=== PATIENT | male | born 1975 | race Caucasian/White ===

== ENCOUNTER 2017-08-16 13:30 | Emergency (ER) | payer OTHER ==
[~2017-08-16] VITALS: Ht 188 cm; Wt 93.4 kg
[~2017-08-16 13:30] MED LIST: HYDR-4309 PO; KET10 PO; ONDA4TAB PO; PROC10TA4 PO
--- NOTE | 2017-08-16 13:37 | ER Report ---
History and Physical Time Seen By MD: 13:36 HPI/ROS CC: Abdominal pain HPI: 41-year-old male with past medical history of hernia with mesh repair. Patient had surgery July 2017 with placement of mesh. Patient states that he has epigastric and supraumbilical abdominal pain stabbing aching and throbbing in nature and nonradiating that is rating as an 8 out of 10. He is nauseated with emesis. Last bowel movement was yesterday. He's denies any flatus today. He usually has a bowel movement every day. He also states that he has a lot of erructation. Patient is concerned about possible bowel obstruction. CT of the abdomen on revealed: IMPRESSION: 1. No acute abnormality in the abdomen or pelvis. 2. Small fat-containing umbilical hernia with a 1.5 cm neck. ROS: 12 point review of systems essentially negative other than what's mentioned in history of present illness. NURSES AND OLD MEDICAL RECORDS: Reviewed PMH: Reviewed SURGICAL HX: Reviewed FAMILY HX: Noncontributory SOCIAL HX: Patient denies smoking alcohol or illicit drugs. He is and is on home. VITAL SIGNS: Reviewed CONSTITUTIONAL: 41-year-old male in minimal to moderate distress PHYSICAL EXAM: HEENT: Pupils equal round reactive to light and accommodate, EOMI, tympanic membranes pearly white umbo present with good light reflex. Lips dry mucous membranes moist gums nonbleeding uvula midline and rises equally with phonation, oropharynx noninjected, teeth intact. NECK: Neck supple, thyroid not appreciated, anterior and posterior cervical lymphadenopathy not appreciated. Trachea midline and rises equally with phonation. CARDIAC: S1-S2 regular rate rhythm no murmurs rubs or gallops. LUNGS: Lungs clear bilaterally posteriorly in all ren. Good air movement. ABDOMEN: Abdomen soft, nondistended, mild epigastric pain no rebound tenderness, bowel sounds active in all 4 quadrants with normal pitch, no bruits noted, no CVA tenderness. MUSCULOSKELETAL: Strength 5 out of 5 x 4 extremities, no deformities noted. NEUROLOGIC: Patient alert and oriented by 3 Allergies: Coded Allergies: codeine (Verified Allergy, Unknown, 08/16/17) Home Meds Active Scripts Ketorolac Tromethamine (KETOROLAC TROMETHAMINE) 10 Mg Tab, 10 MG PO Q6H, #16 TAB Prov:EMANUEL ASHLEY MD 07/20/17 Discontinued Scripts Hydrocodone Bit/Acetaminophen (NORCO 5-325 TABLET) 1 Each Tablet, 1-2 EACH PO Q4H Y for PAIN, #30 TAB Prov:EMANUEL ASHLEY MD 07/20/17 Hx Substance Use Disorder: No Hx Alcohol Use: No Constitutional Vital Sign - Last 24 Hours 08/16/17 08/16/17 08/16/17 08/16/17 13:36 13:38 13:40 13:45 Temp 97.8 Pulse 80 74 79 Resp 16 B/P (MAP) 122/89 (100) 122/89 Pulse Ox 96 94 93 O2 Delivery Room Air 08/16/17 08/16/17 08/16/17 08/16/17 13:50 13:55 14:00 14:05 Pulse 74 79 77 77 B/P (MAP) 114/85 (95) Pulse Ox 94 93 94 91 08/16/17 14:10 Pulse 72 Pulse Ox 92 Medical Decision Making Data Points Result Diagram: 08/16/17 1400 08/16/17 1400 Laboratory Hematology Test 08/16/17 13:40 08/16/17 14:00 Urine Color Yellow Urine Clarity Clear Urine pH 7.0 pH (4.8-9.5) Urine Specific [place] 1.025 Urine Protein Negative mg/dL (NEGATIVE) Urine Glucose (UA) Negative mg/dL (NEGATIVE) Urine Ketones Negative mg/dL (NEGATIVE) Urine Blood Negative (NEGATIVE) Urine Nitrite Negative (NEGATIVE) Urine Bilirubin Negative (NEGATIVE) Urine Urobilinogen Negative mg/dL (0.2-1.9) Urine Leukocyte Esterase Negative (NEGATIVE) Urine RBC None /HPF (0-2/HPF) Urine WBC 1 /HPF (0-5/HPF) Urine Squamous Epithelial Cells None /LPF (</=FEW) Urine Bacteria Negative /HPF (NONE-FEW) Urine Mucus Few /HPF (NONE-FEW) Red Blood Count 5.72 M/uL (4.00-5.60) Mean Corpuscular Volume 84.5 fL (80.0-96.0) Mean Corpuscular Hemoglobin 29.5 pg (26.0-33.0) Mean Corpuscular Hemoglobin Concent 34.9 g/dL (32.0-36.0) Red Cell Distribution Width 13.4 % (11.5-14.5) Mean Platelet Volume 7.4 fL (7.2-11.1) Neutrophils (%) (Auto) 39.7 % (39.4-72.5) Lymphocytes (%) (Auto) 49.2 % (17.6-49.6) Monocytes (%) (Auto) 7.7 % (4.1-12.4) Eosinophils (%) (Auto) 2.8 % (0.4-6.7) Basophils (%) (Auto) 0.6 % (0.3-1.4) Nucleated RBC Relative Count (auto) 0.0 /100WBC Neutrophils # (Auto) 2.4 K/uL (2.0-7.4) Lymphocytes # (Auto) 2.9 K/uL (1.3-3.6) Monocytes # (Auto) 0.5 K/uL (0.3-1.0) Eosinophils # (Auto) 0.2 K/uL (0.0-0.5) Basophils # (Auto) 0.0 K/uL (0.0-0.1) Nucleated RBC Absolute Count (auto) 0.00 K/uL Sodium Level 139 mmol/L (137-145) Potassium Level 4.2 mmol/L (3.5-5.0) Chloride Level 104 mmol/L (98-107) Carbon Dioxide Level 25 mmol/L (22-30) Blood Urea Nitrogen 16 mg/dl (9-21) Creatinine 1.00 mg/dl (0.66-1.25) Glomerular Filtration Rate Calc > 60.0 Random Glucose 90 mg/dl (75-110) Calcium Level 9.6 mg/dl (8.4-10.2) Total Bilirubin 0.7 mg/dl (0.2-1.3) Aspartate Amino Transf (AST/SGOT) 17 U/L (0-35) Alanine Aminotransferase (ALT/SGPT) 65 U/L (0-56) Alkaline Phosphatase 48 U/L (0-126) Total Protein 7.2 gm/dl (6.3-8.2) Albumin 4.1 g/dl (3.5-5.0) Amylase Level 71 U/L (0-110) Lipase 48 U/L (23-300) Chemistry Test 08/16/17 13:40 08/16/17 14:00 Urine Color Yellow Urine Clarity Clear Urine pH 7.0 pH (4.8-9.5) Urine Specific [place] 1.025 Urine Protein Negative mg/dL (NEGATIVE) Urine Glucose (UA) Negative mg/dL (NEGATIVE) Urine Ketones Negative mg/dL (NEGATIVE) Urine Blood Negative (NEGATIVE) Urine Nitrite Negative (NEGATIVE) Urine Bilirubin Negative (NEGATIVE) Urine Urobilinogen Negative mg/dL (0.2-1.9) Urine Leukocyte Esterase Negative (NEGATIVE) Urine RBC None /HPF (0-2/HPF) Urine WBC 1 /HPF (0-5/HPF) Urine Squamous Epithelial Cells None /LPF (</=FEW) Urine Bacteria Negative /HPF (NONE-FEW) Urine Mucus Few /HPF (NONE-FEW) White Blood Count 6.0 k/uL (4.5-11.0) Red Blood Count 5.72 M/uL (4.00-5.60) Hemoglobin 16.9 g/dL (14.0-18.0) Hematocrit 48.3 % (42.0-52.0) Mean Corpuscular Volume 84.5 fL (80.0-96.0) Mean Corpuscular Hemoglobin 29.5 pg (26.0-33.0) Mean Corpuscular Hemoglobin Concent 34.9 g/dL (32.0-36.0) Red Cell Distribution Width 13.4 % (11.5-14.5) Platelet Count 260 K/uL (150-450) Mean Platelet Volume 7.4 fL (7.2-11.1) Neutrophils (%) (Auto) 39.7 % (39.4-72.5) Lymphocytes (%) (Auto) 49.2 % (17.6-49.6) Monocytes (%) (Auto) 7.7 % (4.1-12.4) Eosinophils (%) (Auto) 2.8 % (0.4-6.7) Basophils (%) (Auto) 0.6 % (0.3-1.4) Nucleated RBC Relative Count (auto) 0.0 /100WBC Neutrophils # (Auto) 2.4 K/uL (2.0-7.4) Lymphocytes # (Auto) 2.9 K/uL (1.3-3.6) Monocytes # (Auto) 0.5 K/uL (0.3-1.0) Eosinophils # (Auto) 0.2 K/uL (0.0-0.5) Basophils # (Auto) 0.0 K/uL (0.0-0.1) Nucleated RBC Absolute Count (auto) 0.00 K/uL Glomerular Filtration Rate Calc > 60.0 Calcium Level 9.6 mg/dl (8.4-10.2) Total Bilirubin 0.7 mg/dl (0.2-1.3) Aspartate Amino Transf (AST/SGOT) 17 U/L (0-35) Alanine Aminotransferase (ALT/SGPT) 65 U/L (0-56) Alkaline Phosphatase 48 U/L (0-126) Total Protein 7.2 gm/dl (6.3-8.2) Albumin 4.1 g/dl (3.5-5.0) Amylase Level 71 U/L (0-110) Lipase 48 U/L (23-300) Urinalysis Test 08/16/17 13:40 Urine Color Yellow Urine Clarity Clear Urine pH 7.0 pH (4.8-9.5) Urine Specific [place] 1.025 Urine Protein Negative mg/dL (NEGATIVE) Urine Glucose (UA) Negative mg/dL (NEGATIVE) Urine Ketones Negative mg/dL (NEGATIVE) Urine Blood Negative (NEGATIVE) Urine Nitrite Negative (NEGATIVE) Urine Bilirubin Negative (NEGATIVE) Urine Urobilinogen Negative mg/dL (0.2-1.9) Urine Leukocyte Esterase Negative (NEGATIVE) Urine RBC None /HPF (0-2/HPF) Urine WBC 1 /HPF (0-5/HPF) Urine Squamous Epithelial Cells None /LPF (</=FEW) Urine Bacteria Negative /HPF (NONE-FEW) Urine Mucus Few /HPF (NONE-FEW) EKG/Imaging Imaging CT abdomen and pelvis: Small residual periumbilical fluids secondary to his recent postoperative procedure. No acute findings, no bowel obstruction. ED Course/Re-evaluation ED Course Patient did receive IV Zofran, IV Protonix and normal saline. Patient be discharged to home. Patient will plan and agreement. Re-evaluation Medical decision making bowel obstruction versus GERD versus viral gastroenteritis. Decision to Disposition Date: Aug 16, 2017 Decision to Disposition Time: 15:04 Depart Departure Latest Vital Signs Vital Signs Date Time Temp Pulse Resp B/P (MAP) Pulse Ox O2 Delivery O2 Flow Rate FiO2 08/16/17 14:10 72 92 08/16/17 14:00 114/85 (95) 08/16/17 13:38 97.8 16 Room Air Impression: Primary Impression: Nausea & vomiting Condition: Improved Disposition: HOME OR SELF-CARE New Scripts Ondansetron (ZOFRAN ODT) 4 Mg Tab.rapdis 8 MG PO Q6H Y for NAUSEA/VOMITING, #20 TAB.NESTOR 0 Refills Prov: REZA HALLMAN MD 08/16/17 Patient Instructions: Acute Nausea and Vomiting (ED) Additional Instructions: Given Zofran take as directed. Follow-up with your regular physician. You do not have a bowel obstruction. I and the staff wanted to thank you for allowing us to take care of your needs today in the emergency department at [facility]. We have tried to answer all of your questions and concerns. Please feel free to return to the emergency department for any further concerns or unanswered questions. Problem Qualifiers Primary Impression: Nausea & vomiting Vomiting type: unspecified Vomiting Intractability: unspecified Qualified Codes: R11.2 - Nausea with vomiting, unspecified REZA HALLMAN MD Aug 16, 2017 13:37
[2017-08-16] MEDS ORDERED: NS(*) 0.9% 1000 ML BAG 1,000 ML IV ONE (13:46)
[2017-08-16] MEDS ORDERED: ONDANSETRON 4 MG/2 ML VIAL IVP ONE (13:50)
[2017-08-16] MEDS ORDERED: PANTOPRAZOLE SOD 40 MG IV VIAL IVP ONE (13:50)
[2017-08-16] MEDS ORDERED: NS 0.9% 50 ML VIAL 100 ML ONE (14:00)
[2017-08-16] MEDS ORDERED: IOPAMIDOL 76% 100 ML INFUS BTL 100 ML ONE (14:00)
[2017-08-16 14:13] LABS: PLATELET COUNT, AUTOMATED 260 K/uL (150-450)
[2017-08-16 15:00] VITALS: BP 113/80
[2017-08-16] MEDS ORDERED: ONDA4TAB PO (15:08)
--- NOTE | 2017-08-16 15:08 | RADIOLOGY IMAGING REPORT ---
[place] [facility] [place] NAME: Benjamin Gold : 1975 MR: [id number] V: [id number] EXAM DATE: ORDERING PHYSICIAN: REZA HALLMAN TECHNOLOGIST: Location: [facility] - [place] Patient: Benjamin Gold : 1975 Visit/Account:[id number] Date of Sevice: 08/16/2017 EXAMINATION: CT abdomen and pelvis with contrast COMPARISON: 07/18/2017 HISTORY: abdominal pain with this umbilical hernia mesh 3 weeks ago. PROCEDURE: Multiplanar contrast enhanced CT of the abdomen and pelvis with 100 mL intravenous Isovue 370. One of the following dose optimization techniques was utilized in the performance of this exam: Automated exposure control; adjustment of the mA and/or kV according to the patient's size; or use of an iterative reconstruction technique. Specific details can be referenced in the facility's radiol ogy CT exam operational policy. FINDINGS: Visualized thorax: Negative. Liver: Negative. Gallbladder and biliary system: Negative Spleen: Spleen size is normal. Pancreas: Negative. Adrenal glands: Negative. Kidneys and bladder: No renal mass or evidence of an obstructive uropathy. Urinary bladder is unrema rkable. Vessels: Within normal limits. Bowel and mesentery: Stomach is within normal limits. Small bowel is unremarkable. Appendectomy. Smal l amount of stool in the colon. No bowel or mesenteric inflammation. Pelvic organs: Negative. Lymph nodes: No adenopathy. Free air/free fluid: None. Abdominal wall and osseous structures: Periumbilical soft tissue inflammation with no evidence of a s ubcutaneous gas or fluid collection. No umbilical hernia. L5-S1 discectomy. IMPRESSION: 1. Periumbilical inflammation is within normal postoperative limits although correlation with any cli nical evidence of cellulitis is recommended. No abscess. 2. No findings of acute disease are otherwise identified in the abdomen or pelvis. Results were discussed with REZA HALLMAN at 08/16/2017 3:02 PM. Report Dictated By: Jose Doan MD at 08/16/2017 2:48 PM Report E-Signed By: Jose Doan MD at 08/16/2017 3:03 PM WSN:[id number]
== END 2017-08-16 15:15 | disposition home or self-care (01) ==
LOC: ER 13:39
DX: R11.2 Nausea with vomiting, unspecified (principal)
CPT/HCPCS: 74177; 81001; 82150; 83690; 85025; 96361; 96374; 96375; 99284; C9113; J2405; J7030; J7050; Q9967; 82040; 82247; 82310; 82374; 82435; 82565; 82947; 84075; 84132; 84155; 84295; 84450; 84460; 84520

== ENCOUNTER → 2018-09-27 | Outpatient (CLI) | payer OTHER ==
[~2018-09-27] MED LIST changes: -HYDR-4309 PO; +HYDR-653 PO; +IOPAMIDOL 61% 100 ML INFUS BTL 100 ML ONE
--- NOTE | 2018-09-27 13:18 | RADIOLOGY IMAGING REPORT ---
FACILITY: [facility] PATIENT NAME: Benjamin Gold : 1975 MR: [id number] V: [id number] EXAM DATE: ORDERING PHYSICIAN: ANDRES GONZALEZ TECHNOLOGIST: Location: [facility] Patient: Benjamin Gold : 1975 Visit/Account:[id number] Date of Sevice: 09/27/2018 EXAMINATION: CT abdomen with IV contrast CT pelvis with IV contrast HISTORY: Generalized abdominal pain, epigastric pain, periumbilical abdominal tenderness. Hernia re pair one year ago. COMPARISON: CT abdomen and pelvis from 08/16/2017. TECHNIQUE: Axial images were taken through the abdomen and pelvis with intravenous contrast. Sagitt al and coronal reformatted images are also submitted. CONTRAST: 100 mL of IV Isovue-300. One of the following dose optimization techniques was utilized in the performance of this exam: Autom ated exposure control; adjustment of the mA and/or kV according to the patient's size; or use of an i terative reconstruction technique. Specific details can be referenced in the facility's radiology C T exam operational policy. FINDINGS: Liver/biliary: Negative. Pancreas: Negative. Spleen: Negative. Adrenal glands: Negative. Kidneys: Negative. Pelvic structures: Negative. Bowel: Bowel loops are normal in caliber. Previous appendectomy. Peritoneum/retroperitoneum/mesenteries: Negative. Vessels: Negative. Musculoskeletal/body wall: Anterior interbody fusion hardware at L5-S1 is well-positioned without jessica dence of loosening or complication. There is bony fusion across the disc. Mild degenerative changes o f the lumbar spine. There is no residual or recurrent umbilical hernia. Lymph nodes: Negative. Lower chest: Negative. IMPRESSION: No residual or recurrent umbilical hernia. No explanation for abdominal pain. Report Dictated By: Kely Melendez MD at 09/27/2018 1:09 PM Report E-Signed By: Kely Melendez MD at 09/27/2018 1:14 PM WSN:[id number]
== END ==
LOC: CT 10:47
PROVIDERS: ATTEND Family Medicine
DX: R10.13 Epigastric pain (principal); R10.815 Periumbilic abdominal tenderness
CPT/HCPCS: 74177; Q9967

== ENCOUNTER 2018-12-08 03:30 | Emergency (ER) | payer OTHER ==
[~2018-12-08 03:30] MED LIST changes: -IOPAMIDOL 61% 100 ML INFUS BTL 100 ML ONE
[2018-12-08 03:34] VITALS: BP 136/92
--- NOTE | 2018-12-08 03:49 | ER Report ---
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 States that over the past few days or week he's had right-sided low back pain with some radiation of numbness down the back of the thigh on the ipsilateral side. He denies any saddle anesthesia denies any retention or incontinence of urine or stool. He denies any fevers or chills. Denies chest pain or shortness of breath. She is able to play. He states movement does seems to make the pain worse however once he is up and walking the pain seems to the somewhat improved. He's been using [id number] homeopathic medicine for muscle relaxation without significant relief. They have also been using topical medications and gentle massage to the area which does provide some relief. REVIEW OF SYSTEMS: Respiratory: No cough, no dyspnea. Cardiovascular: No chest pain, no palpitations. Gastrointestinal: No vomiting, no abdominal pain. Musculoskeletal: Right low back pain Allergies: Coded Allergies: codeine (Verified Allergy, Unknown, 08/16/17) morphine (Verified Adverse Reaction, Mild, PT REPORTS THAT IS DOES NOT WORK, 12/08/18) Home Meds Active Scripts Methocarbamol (METHOCARBAMOL) 750 Mg Tablet, 1500 MG PO QID for Muscle Relaxant, #30 TAB 0 Refills Prov:CAMILO WRIGHT MD 12/08/18 Ibuprofen (IBUPROFEN) 800 Mg Tablet, 1 TAB PO Q8H for PAIN, #30 TAB 0 Refills Prov:CAMILO WRIGHT MD 12/08/18 Ondansetron Hcl (ZOFRAN) 4 Mg Tablet, 4 MG PO Q8H for Nausea, #15 TAB 0 Refills Prov:CAMILO WRIGHT MD 12/08/18 Oxycodone Hcl/Acetaminophen (PERCOCET 5-325 MG TABLET) 1 Each Tablet, 1 EACH PO Q4H for PAIN, #20 TAB 0 Refills Prov:CAMILO WRIGHT MD 12/08/18 Ondansetron (ZOFRAN ODT) 4 Mg Tab.rapdis, 8 MG PO Q6H PRN for NAUSEA/VOMITING, #20 TAB.NESTOR 0 Refills Prov:REZA HLALMAN MD 08/16/17 Ketorolac Tromethamine (KETOROLAC TROMETHAMINE) 10 Mg Tab, 10 MG PO Q6H, #16 TAB Prov:EMANUEL ASHLEY MD 07/20/17 Past Medical/Surgical History Prior history of L4-L5 fusion in 1998 Hx Substance Use Disorder: No Hx Alcohol Use: No Constitutional Vital Sign - Last 24 Hours 12/08/18 12/08/18 03:34 04:56 Temp 97.9 Pulse 84 61 Resp 22 B/P (MAP) 136/92 Pulse Ox 93 91 O2 Delivery Room Air Physical Exam General appearance: alert no distress. Back: Thoracic spine has no spinal or paraspinal tenderness to palpation. Lumbar spine has no spinal tenderness moderate right paraspinal tenderness Gastroinal: Abdomen is soft, non tender, no masses.. Skin: No lesions and no rashes. Vascular: Normal capillary refill and pulses to feet. Neurological: Motor function: leg strength normal and symmetric for both legs Sensory function: normal for all leg dermatomes. Straight leg raise negative to 70 degrees. Reflexes normal bilaterally on legs. [ ] DIFFERENTIAL DIAGNOSIS: After history and physical exam differential diagnosis was considered for back pain including muscular strain, herniated disc, intra- abdominal and renal causes. Medical Decision Making Data Points Laboratory Hematology Test 12/08/18 04:30 Urine Color Yellow Urine Clarity Clear Urine pH 6.0 pH (4.8-9.5) Urine Specific [place] 1.025 Urine Protein Negative mg/dL (NEGATIVE) Urine Glucose (UA) Negative mg/dL (NEGATIVE) Urine Ketones Negative mg/dL (NEGATIVE) Urine Blood Negative (NEGATIVE) Urine Nitrite Negative (NEGATIVE) Urine Bilirubin Negative (NEGATIVE) Urine Urobilinogen 4.0 mg/dL (0.2-1.9) Urine Leukocyte Esterase Negative (NEGATIVE) Urine RBC None /HPF (0-2/HPF) Urine WBC None /HPF (0-5/HPF) Urine Squamous Epithelial Cells None /LPF (</=FEW) Urine Bacteria Negative /HPF (NONE-FEW) Urine Mucus None /HPF (NONE-FEW) Chemistry Test 12/08/18 04:30 Urine Color Yellow Urine Clarity Clear Urine pH 6.0 pH (4.8-9.5) Urine Specific [place] 1.025 Urine Protein Negative mg/dL (NEGATIVE) Urine Glucose (UA) Negative mg/dL (NEGATIVE) Urine Ketones Negative mg/dL (NEGATIVE) Urine Blood Negative (NEGATIVE) Urine Nitrite Negative (NEGATIVE) Urine Bilirubin Negative (NEGATIVE) Urine Urobilinogen 4.0 mg/dL (0.2-1.9) Urine Leukocyte Esterase Negative (NEGATIVE) Urine RBC None /HPF (0-2/HPF) Urine WBC None /HPF (0-5/HPF) Urine Squamous Epithelial Cells None /LPF (</=FEW) Urine Bacteria Negative /HPF (NONE-FEW) Urine Mucus None /HPF (NONE-FEW) Urinalysis Test 12/08/18 04:30 Urine Color Yellow Urine Clarity Clear Urine pH 6.0 pH (4.8-9.5) Urine Specific [place] 1.025 Urine Protein Negative mg/dL (NEGATIVE) Urine Glucose (UA) Negative mg/dL (NEGATIVE) Urine Ketones Negative mg/dL (NEGATIVE) Urine Blood Negative (NEGATIVE) Urine Nitrite Negative (NEGATIVE) Urine Bilirubin Negative (NEGATIVE) Urine Urobilinogen 4.0 mg/dL (0.2-1.9) Urine Leukocyte Esterase Negative (NEGATIVE) Urine RBC None /HPF (0-2/HPF) Urine WBC None /HPF (0-5/HPF) Urine Squamous Epithelial Cells None /LPF (</=FEW) Urine Bacteria Negative /HPF (NONE-FEW) Urine Mucus None /HPF (NONE-FEW) EKG/Imaging Imaging FACILITY: [facility] - [place] PATIENT NAME: Benjamin Gold : 1975 MR: [id number] V: [id number] EXAM DATE: ORDERING PHYSICIAN: CAMILO WRIGHT TECHNOLOGIST: [place] [facility] [place]: Benjamin Gold : 1975 Visit/Account:[id number] Date of Sevice: 12/08/2018 LUMBAR SPINE: Indication: Worsening low back pain. History of surgery. Technique: Frontal and lateral views were obtained. Comparison: CT scan dated 07/18/2017 Findings: There is a chronic fusion procedure at L5-S1. The disc space cages remain in satisfactory position. The skeletal structures are in satisfactory alignment. There is chronic mild disc space narrowing in the lower thoracic spine, at L1-L2, L3-L4 and L4-L5. There has been no significant change. There are no signs of fracture, subluxation, or compression deformity. The skeletal structures are otherwise unremarkable. No paraspinal soft tissue abnormality is identified. IMPRESSION: Stable postoperative changes. No acute deformity. Report Dictated By: Rell Banegas MD at 12/08/2018 4:25 AM Report E-Signed By: Rell Banegas MD at 12/08/2018 4:29 AM WSN:[id number] ED Course/Re-evaluation ED Course 12/08/2018 3:48:30 am symptoms mostly consistent with musculoskeletal low back pain and symptoms of sciatica. We'll check urinalysis and will also check bedside ultrasound. We will give IM Dilaudid and oral Zofran. The patient sometimes gets nauseous from narcotic pain medication. 12/08/2018 4:03:03 am bedside ultrasound reveals bilateral normal appearance of the right and left kidneys. No evidence of hydronephrosis. Decision to Disposition Date: Dec 08, 2018 Decision to Disposition Time: 04:59 Depart Departure Latest Vital Signs Vital Signs Date Time Temp Pulse Resp B/P (MAP) Pulse Ox O2 Delivery O2 Flow Rate FiO2 12/08/18 04:56 61 91 12/08/18 03:34 97.9 22 136/92 Room Air Impression: Primary Impression: Back pain Condition: Improved Disposition: HOME OR SELF-CARE Referrals: ZITA KING MD 2 Weeks if symptoms persist New Scripts Methocarbamol (METHOCARBAMOL) 750 Mg Tablet 1500 MG PO QID for Muscle Relaxant, #30 TAB 0 Refills Prov: CAMILO WRIGHT MD 12/08/18 Ibuprofen (IBUPROFEN) 800 Mg Tablet 1 TAB PO Q8H for PAIN, #30 TAB 0 Refills Prov: CAMILO WRIGHT MD 12/08/18 Ondansetron Hcl (ZOFRAN) 4 Mg Tablet 4 MG PO Q8H for Nausea, #15 TAB 0 Refills Prov: CAMILO WRIGHT MD 12/08/18 Oxycodone Hcl/Acetaminophen (PERCOCET 5-325 MG TABLET) 1 Each Tablet 1 EACH PO Q4H for PAIN, #20 TAB 0 Refills Prov: CAMILO WRIGHT MD 12/08/18 Departure Forms: ER Transition Record, Medications Reconciliation, Off Work/School Form, School or Work Release?: Work Number of days to be released: 2 Patient Portal Information Patient Instructions: Acute Low Back Pain (ED) Additional Instructions: Return to the emergency department if you at any time develop fever along with your back pain, or if you have difficulty or inability to ambulate, or if you develop a retention or incontinence of urine or stool. Problem Qualifiers Primary Impression: Back pain Back pain location: low back pain Chronicity: acute Back pain laterality: right Sciatica presence: with sciatica Sciatica laterality: sciatica of right side Qualified Codes: M54.41 - Lumbago with sciatica, right side CAMILO WRIGHT MD Dec 08, 2018 03:49
[2018-12-08] MEDS ORDERED: ONDANSETRON 4 MG ODT TABDP SL ONE (03:50)
[2018-12-08] MEDS ORDERED: HYDROMORPHONE HCL 1 MG/ML SYRINGE IM ONE (03:50)
[2018-12-08] MEDS ORDERED: ONDA4TAB97 PO (04:04)
[2018-12-08] MEDS ORDERED: OXYC-865 PO (04:04)
[2018-12-08] MEDS ORDERED: IBUP800T37 PO (04:04)
[2018-12-08] MEDS ORDERED: DIAZEPAM 5 MG TAB PO ONE (04:25)
[2018-12-08] MEDS ORDERED: METH-280 PO (04:28)
--- NOTE | 2018-12-08 04:33 | RADIOLOGY IMAGING REPORT ---
[facility] PATIENT NAME: Benjamin Gold : 1975 MR: [id number] V: [id number] EXAM DATE: ORDERING PHYSICIAN: CAMILO WRIGHT TECHNOLOGIST: Location: [facility] - [place] Patient: Benjamin Gold : 1975 Visit/Account:[id number] Date of Sevice: 12/08/2018 LUMBAR SPINE: Indication: Worsening low back pain. History of surgery. Technique: Frontal and lateral views were obtained. Comparison: CT scan dated 07/18/2017 Findings: There is a chronic fusion procedure at L5-S1. The disc space cages remain in satisfactory p osition. The skeletal structures are in satisfactory alignment. There is chronic mild disc space narr owing in the lower thoracic spine, at L1-L2, L3-L4 and L4-L5. There has been no significant change. T here are no signs of fracture, subluxation, or compression deformity. The skeletal structures are oth erwise unremarkable. No paraspinal soft tissue abnormality is identified. IMPRESSION: Stable postoperative changes. No acute deformity. Report Dictated By: Rell Banegas MD at 12/08/2018 4:25 AM Report E-Signed By: Rell Banegas MD at 12/08/2018 4:29 AM WSN:[id number]
[2018-12-08] MEDS ORDERED: KETOROLAC 60 MG/2 ML VIAL IM ONE (04:40)
== END 2018-12-08 05:11 | disposition home or self-care (01) ==
LOC: ER 03:57
DX: M54.41 Lumbago with sciatica, right side (principal)
CPT/HCPCS: 72100; 81001; 96372; 99284; J1170; J1885; S0119